=== PATIENT | male | born 1990 | race Caucasian/White ===

== ENCOUNTER 2017-02-11 18:28 | Inpatient (IN) | payer OTHER ==
[~2017-02-11] VITALS: Ht 182.9 cm; Wt 86.4 kg
[~2017-02-11 18:28] MED LIST: ABREVA2 GM TP; ANAPROX DS550 M1 PO; BENTYL10 MG PO; DEPAKOTE ER500 MG PO; DEPAKOTE500 MG PO; DIVALPROEX SOD500 MG PO; FLOMAX0.4 MG PO; HYDROCODON-ACE1 EAC7 PO; LAMICTAL; LAMICTAL100 MG PO; LAMICTAL200 MG PO; LAMOTRIGINE200 MG PO; NAPROSYN500 MG PO; NORVASC5 M1 PO; PROMETHAZINE HC25 M1 PO; ZOFRAN ODT4 MG PO
[2017-02-11 19:27] LABS: BASOPHIL COUNT 0.1 K/uL (0-0.1); EOSINOPHIL (%) 0.4 % (0-5); EOSINOPHIL COUNT 0.1 K/uL (0-0.3); HEMATOCRIT 37.1 % (38.0-50.0); IMMATURE GRANULOCYTE COUNT 0.2 K/uL; INSTRUMENT ABS NEUTROPHIL CT 11.8 K/uL; LYMPHOCYTE COUNT 4.6 K/uL (1.0-2.8); MCHC 32.9 G/DL (30.0-36.0); MCV 91.2 FL (86-99); MEAN PLAT.VOLUME 10.9 uM^3 (9.0-12.4); MONOCYTE (%) 6.4 % (3-12); MONOCYTE COUNT 1.2 K/uL (0-0.8); NEUTROPHIL (%) 66.1 % (45-76); NEUTROPHIL COUNT 11.8 K/uL (1.8-6.4); PLATELET COUNT 325 K/uL (156-360); RBC DIS.WIDTH-CV 12.8 % (11.8-14.6); RBC DIS.WIDTH-SD 42.4 % (39-53); RED BLOOD COUNT 4.07 M/uL (4.00-5.50); WHITE BLOOD COUNT 17.8 K/uL (4.1-10.2)
[2017-02-11 19:36] LABS: CHLORIDE 104 mEq/L (99-109); SODIUM 139 mEq/L (136-147)
[2017-02-11 19:38] LABS: GLUCOSE 118 mg/dL (70-99)
[2017-02-11 19:39] LABS: ANION GAP 13 MEQ/L (2-14)
[2017-02-11 19:40] LABS: TOTAL BILIRUBIN 0.3 mg/dL (0.0-1.0)
[2017-02-11 19:41] LABS: ALKALINE PHOSPHATASE 39 IU/L (3-129)
[2017-02-11 19:42] LABS: GFR ESTIMATE (CALCULATED) > 59 mL/min/
[2017-02-11 19:43] LABS: UREA NITROGEN (BUN) 44 mg/dL (9-23)
[2017-02-11 19:45] LABS: LIPASE 26 U/L (1.0-51.0)
[2017-02-11] MEDS ORDERED: ALEVE220 MG PO (20:44)
[2017-02-11 20:54] LABS: ADD MIUA? NO; BILIRUBIN NEGATIVE; BLOOD NEGATIVE; COLOR STRAW ((YELLOW)); GLUCOSE (STRIP) NEGATIVE; KETONES 5; LEUKOCYTES NEGATIVE; NITRITE NEGATIVE; PROTEIN (STRIP) NEGATIVE; SPECIFIC GRAVITY 1.045 (1.000-1.030); UROBILINOGEN 0.2 MG/DL (0.2-1.0)
[2017-02-11 21:51] LABS: HEMATOCRIT 28.7 % (38.0-50.0); MCV 91.4 FL (86-99)
[2017-02-11 22:17] LABS: HEMATOCRIT 29.1 % (38.0-50.0); MCV 91.8 FL (86-99)
[2017-02-11 22:23] LABS: SAMPLE HEMOLYSIS CHECK 0; SAMPLE ICTERIC CHECK 0; SAMPLE LIPEMIA CHECK 0
[2017-02-11 23:32] LABS: HEMATOCRIT 27.9 % (38.0-50.0); MCH 29.4 PG (29.0-34.0); MCHC 32.3 G/DL (30.0-36.0); MCV 91.2 FL (86-99); MEAN PLAT.VOLUME 10.7 uM^3 (9.0-12.4); PLATELET COUNT 226 K/uL (156-360); RBC DIS.WIDTH-CV 12.8 % (11.8-14.6); RBC DIS.WIDTH-SD 42.3 % (39-53); RED BLOOD COUNT 3.06 M/uL (4.00-5.50); WHITE BLOOD COUNT 12.3 K/uL (4.1-10.2)
[2017-02-12] VITALS (7 sets, daily range): BP systolic 103–142; BP diastolic 51–91
[2017-02-12 01:32] LABS: HEMATOCRIT 25.9 % (38.0-50.0); MCV 90.2 FL (86-99)
[2017-02-12 04:27] LABS: HEMATOCRIT 24.5 % (38.0-50.0); MCV 90.4 FL (86-99)
[2017-02-12 07:06] LABS: HEMATOCRIT 24.6 % (38.0-50.0); MCV 91.1 FL (86-99)
[2017-02-12 07:34] LABS: ANION GAP 12 MEQ/L (2-14); CHLORIDE 105 MEQ/L (99-109); GFR ESTIMATE (CALCULATED) > 59 mL/min/; SAMPLE HEMOLYSIS CHECK 0; SAMPLE ICTERIC CHECK 0; SAMPLE LIPEMIA CHECK 0; SODIUM 144 MEQ/L (136-147); UREA NITROGEN (BUN) 24 mg/dL (9-23)
[2017-02-12 07:39] LABS: GLUCOSE 79 mg/dL (70-99)
[2017-02-12 10:36] LABS: HEMATOCRIT 23.5 % (38.0-50.0); MCH 29.8 PG (29.0-34.0); MCHC 32.8 G/DL (30.0-36.0); MCV 91.1 FL (86-99); MEAN PLAT.VOLUME 10.7 uM^3 (9.0-12.4); PLATELET COUNT 206 K/uL (156-360); RBC DIS.WIDTH-CV 13.2 % (11.8-14.6); RED BLOOD COUNT 2.58 M/uL (4.00-5.50); WHITE BLOOD COUNT 11.7 K/uL (4.1-10.2)
[2017-02-12 11:02] LABS: ANION GAP 9 MEQ/L (2-14); CHLORIDE 107 MEQ/L (99-109); GFR ESTIMATE (CALCULATED) > 59 mL/min/; GLUCOSE 82 mg/dL (70-99); POTASSIUM 3.7 MEQ/L (3.7-5.4); SAMPLE HEMOLYSIS CHECK 0; SAMPLE ICTERIC CHECK 0; SAMPLE LIPEMIA CHECK 0; SODIUM 142 MEQ/L (136-147); UREA NITROGEN (BUN) 23 mg/dL (9-23)
[2017-02-12 13:48] LABS: HEMATOCRIT 22.1 % (38.0-50.0); MCV 92.1 FL (86-99)
[2017-02-13] VITALS (7 sets, daily range): BP systolic 110–143; BP diastolic 51–86
[2017-02-13 00:56] LABS: HEMATOCRIT 29.5 % (38.0-50.0); MCV 89.7 FL (86-99)
[2017-02-13 07:36] LABS: HEMATOCRIT 28.3 % (38.0-50.0); MCH 29.8 PG (29.0-34.0); MCHC 33.2 G/DL (30.0-36.0); MCV 89.8 FL (86-99); MEAN PLAT.VOLUME 10.9 uM^3 (9.0-12.4); PLATELET COUNT 183 K/uL (156-360); RBC DIS.WIDTH-CV 13.3 % (11.8-14.6); RBC DIS.WIDTH-SD 43.2 % (39-53); RED BLOOD COUNT 3.15 M/uL (4.00-5.50); WHITE BLOOD COUNT 10.1 K/uL (4.1-10.2)
[2017-02-13 07:59] LABS: ANION GAP 7 MEQ/L (2-14); CHLORIDE 104 MEQ/L (99-109); GFR ESTIMATE (CALCULATED) > 59 mL/min/; GLUCOSE 82 mg/dL (70-99); POTASSIUM 3.8 MEQ/L (3.7-5.4); SAMPLE HEMOLYSIS CHECK 0; SAMPLE ICTERIC CHECK 0; SAMPLE LIPEMIA CHECK 0; SODIUM 141 MEQ/L (136-147); UREA NITROGEN (BUN) 13 mg/dL (9-23)
[2017-02-13 13:19] LABS: HEMATOCRIT 30.2 % (38.0-50.0); MCV 89.1 FL (86-99)
[2017-02-13 19:36] LABS: HEMATOCRIT 29.5 % (38.0-50.0); MCV 88.9 FL (86-99)
[2017-02-14 01:57] LABS: HEMATOCRIT 29.8 % (38.0-50.0); MCV 88.2 FL (86-99)
[2017-02-14 05:10] VITALS: BP 117/67
[2017-02-14 07:05] LABS: HEMATOCRIT 28.2 % (38.0-50.0); MCV 88.1 FL (86-99)
[2017-02-14 07:50] LABS: ANION GAP 9 MEQ/L (2-14); CHLORIDE 103 MEQ/L (99-109); GFR ESTIMATE (CALCULATED) > 59 mL/min/; GLUCOSE 85 mg/dL (70-99); POTASSIUM 3.5 MEQ/L (3.7-5.4); SODIUM 139 MEQ/L (136-147); UREA NITROGEN (BUN) 13 mg/dL (9-23)
[2017-02-14 08:00] VITALS: BP 125/69
[2017-02-14 08:07] LABS: MCH 30.4 PG (29.0-34.0); MCHC 34.2 G/DL (30.0-36.0); PLATELET COUNT 208 K/uL (156-360); RBC DIS.WIDTH-CV 13.3 % (11.8-14.6); RBC DIS.WIDTH-SD 42.6 % (39-53); RED BLOOD COUNT 3.16 M/uL (4.00-5.50); WHITE BLOOD COUNT 11.8 K/uL (4.1-10.2)
[2017-02-14 12:00] VITALS: BP 117/68
[2017-02-14 16:00] VITALS: BP 127/69
[2017-02-14 19:05] LABS: HEMATOCRIT 29.1 % (38.0-50.0); MCV 88.7 FL (86-99)
[2017-02-14 20:00] VITALS: BP 124/76
[2017-02-14 22:54] LABS: INTERNAL CONTROL VALID? YES
[2017-02-14 23:07] VITALS: BP 138/76
[2017-02-15 04:36] VITALS: BP 106/58
[2017-02-15 07:01] LABS: HEMATOCRIT 29.3 % (38.0-50.0); MCHC 33.8 G/DL (30.0-36.0); MCV 88.8 FL (86-99); MEAN PLAT.VOLUME 10.3 uM^3 (9.0-12.4); PLATELET COUNT 229 K/uL (156-360); RBC DIS.WIDTH-SD 41.1 % (39-53); WHITE BLOOD COUNT 10.1 K/uL (4.1-10.2)
[2017-02-15 09:25] VITALS: BP 127/77
[2017-02-15 10:29] LABS: POC NON-PRINT COM 1 ND
[2017-02-15 13:41] VITALS: BP 130/72
[2017-02-15] MEDS ORDERED: LEVETIRACETAM500 MG PO (14:30)
[2017-02-15] MEDS ORDERED: PROTONIX40 MG PO (14:30)
== END 2017-02-15 16:50 | disposition home or self-care (01) | DRG 378 ==
LOC: EME 18:28 → EDOF 22:54 → 4EAST 22:54
PROVIDERS: Hospitalist; Internal Medicine; Internal Medicine Gastroenterology; Physician Assistant; Specialist
PROC: 30233N1 Transfusion of Nonautologous Red Blood Cells into Peripheral Vein, Percutaneous Approach (ICD-10-PCS; principal; 2017-02-12)
PROC: 0DB68ZX Excision of Stomach, Via Natural or Artificial Opening Endoscopic, Diagnostic (ICD-10-PCS; 2017-02-12)
DX: K92.0 Hematemesis (principal); D62 Acute posthemorrhagic anemia; K25.9 Gastric ulcer, unspecified as acute or chronic, without hemorrhage or perforation; K29.80 Duodenitis without bleeding; G40.909 Epilepsy, unspecified, not intractable, without status epilepticus; E86.0 Dehydration; E87.6 Hypokalemia; K76.0 Fatty (change of) liver, not elsewhere classified
CPT/HCPCS: 70450; 74177; 80048; 80048 91; 80053; 80069; 80164; 81003; 82272; 83690; 85014; 85018; 85025; 85027; 86850; 86900; 86901; 86920; 88305; 88342 TC; 95819; 99281; 99285; C9113; J1953; J2250; J2405; J3010; J7030; J7050; P9016

== ENCOUNTER 2017-03-25 19:10 | Emergency (ER) | payer OTHER ==
[~2017-03-25] VITALS: Ht 172.7 cm; Wt 91.0 kg
[~2017-03-25 19:10] MED LIST changes: +ALEVE220 MG PO; +LEVETIRACETAM500 MG PO; +PROTONIX40 MG PO
[2017-03-25 20:04] LABS: MCH 27.4 PG (29.0-34.0); MCHC 31.3 G/DL (30.0-36.0); MCV 87.6 FL (86-99); MEAN PLAT.VOLUME 10.1 uM^3 (9.0-12.4); PLATELET COUNT 341 K/uL (156-360); RBC DIS.WIDTH-CV 12.9 % (11.8-14.6); RBC DIS.WIDTH-SD 41.3 % (39-53); RED BLOOD COUNT 4.45 M/uL (4.00-5.50); WHITE BLOOD COUNT 8.9 K/uL (4.1-10.2)
[2017-03-25 20:13] LABS: CHLORIDE 104 mEq/L (99-109); POTASSIUM 4.4 mEq/L (3.7-5.4); SODIUM 140 mEq/L (136-147)
[2017-03-25 20:14] LABS: GLUCOSE 87 mg/dL (70-99)
[2017-03-25 20:16] LABS: ANION GAP 10 MEQ/L (2-14)
[2017-03-25 20:18] LABS: GFR ESTIMATE (CALCULATED) > 59 mL/min/
[2017-03-25 20:19] LABS: UREA NITROGEN (BUN) 10 mg/dL (9-23)
[2017-03-25 20:41] LABS: SAMPLE HEMOLYSIS CHECK 0; SAMPLE ICTERIC CHECK 0; SAMPLE LIPEMIA CHECK 1
[2017-03-25 22:47] VITALS: BP 157/79
== END 2017-03-25 23:01 | disposition home or self-care (01) ==
LOC: EME 19:10
PROVIDERS: Emergency Medicine
DX: G40.909 Epilepsy, unspecified, not intractable, without status epilepticus (principal); S09.90XA Unspecified injury of head, initial encounter; W22.8XXA Striking against or struck by other objects, initial encounter; Y92.531 Health care provider office as the place of occurrence of the external cause; Z88.8 Allergy status to other drugs, medicaments and biological substances
CPT/HCPCS: 70450; 80048; 80164; 85027; 99281; 99283

== ENCOUNTER 2017-05-04 14:26 | Emergency (ER) | payer OTHER ==
[~2017-05-04] VITALS: Ht 167.6 cm; Wt 90.0 kg
[2017-05-04] MEDS ORDERED: NORCO 5/3251 TABLET PO (17:40)
[2017-05-04 18:17] VITALS: BP 132/80
== END 2017-05-04 18:19 | disposition home or self-care (01) ==
LOC: EME 14:26
PROC: 2W3EX1Z Immobilization of Right Hand using Splint (ICD-10-PCS; principal; 2017-05-04)
DX: S62.300A Unspecified fracture of second metacarpal bone, right hand, initial encounter for closed fracture (principal); W22.8XXA Striking against or struck by other objects, initial encounter
CPT/HCPCS: 73130; 99281; 99283

== ENCOUNTER 2017-12-30 23:21 | Emergency (ER) | payer OTHER ==
[~2017-12-30] VITALS: Ht 175.3 cm; Wt 82.2 kg
[~2017-12-30 23:21] MED LIST changes: +NORCO 5/3251 TABLET PO
[2017-12-31 00:01] LABS: HEMATOCRIT 45.7 % (38.0-50.0); HEMOGLOBIN 15.2 G/DL (12.5-16.6); MCH 30.2 PG (29.0-34.0); MCHC 33.3 G/DL (30.0-36.0); MCV 90.9 FL (86-99); PLATELET COUNT 273 K/uL (156-360); RBC DIS.WIDTH-CV 13.6 % (11.8-14.6); RBC DIS.WIDTH-SD 45.6 % (39-53); RED BLOOD COUNT 5.03 M/uL (4.00-5.50); WHITE BLOOD COUNT 11.4 K/uL (4.1-10.2)
[2017-12-31 00:09] LABS: CHLORIDE 102 mEq/L (99-109); POTASSIUM 4.3 mEq/L (3.7-5.4); SODIUM 144 mEq/L (136-147)
[2017-12-31 00:11] LABS: GLUCOSE 89 mg/dL (70-99)
[2017-12-31 00:14] LABS: CREATININE 1.2 mg/dL (0.6-1.3); GFR ESTIMATE (CALCULATED) > 59 mL/min/ (58.99-99999)
[2017-12-31 00:15] LABS: UREA NITROGEN (BUN) 18 mg/dL (9-23)
[2017-12-31 01:54] LABS: VALPROIC ACID (DEPAKOTE) 71.5 MCG/ML (50-100)
[2017-12-31 05:58] VITALS: BP 158/94
== END 2017-12-31 05:58 | disposition home or self-care (01) ==
LOC: EME 23:21
DX: R55 Syncope and collapse (principal); R51 Headache; R56.9 Unspecified convulsions; Z91.81 History of falling; F32.9 Major depressive disorder, single episode, unspecified; Z88.8 Allergy status to other drugs, medicaments and biological substances
CPT/HCPCS: 70450; 80048; 80164; 81003; 85027; 99281; 99285; J1200; J2765; J7030

== ENCOUNTER 2018-02-04 03:08 | Emergency (ER) | payer OTHER ==
[~2018-02-04] VITALS: Ht 170.2 cm; Wt 80.7 kg
[2018-02-04 03:58] LABS: BASOPHIL (%) 0.5 % (0-1); BASOPHIL COUNT 0.1 K/uL (0-0.1); EOSINOPHIL (%) 0.4 % (0-5); HEMATOCRIT 41.5 % (38.0-50.0); HEMOGLOBIN 13.9 G/DL (12.5-16.6); IMMATURE GRANULOCYTE (%) 0.2 % (0.0-0.7); LYMPHOCYTE (%) 30.5 % (15-42); MCH 30.5 PG (29.0-34.0); MCHC 33.5 G/DL (30.0-36.0); MONOCYTE (%) 8.8 % (3-12); MONOCYTE COUNT 0.9 K/uL (0-0.8); NEUTROPHIL (%) 59.6 % (45-76); NEUTROPHIL COUNT 5.8 K/uL (1.8-6.4); PLATELET COUNT 253 K/uL (156-360); RBC DIS.WIDTH-CV 13.7 % (11.8-14.6); RED BLOOD COUNT 4.56 M/uL (4.00-5.50); WHITE BLOOD COUNT 9.8 K/uL (4.1-10.2)
[2018-02-04 04:08] LABS: CHLORIDE 105 mEq/L (99-109); POTASSIUM 3.9 mEq/L (3.7-5.4); SODIUM 142 mEq/L (136-147)
[2018-02-04 04:10] LABS: GLUCOSE 109 mg/dL (70-99)
[2018-02-04 04:14] LABS: GFR ESTIMATE (CALCULATED) > 59 mL/min/ (58.99-99999)
[2018-02-04 04:15] LABS: UREA NITROGEN (BUN) 21 mg/dL (9-23)
[2018-02-04 04:16] LABS: CREATINE KINASE 74 IU/L (1-294)
[2018-02-04 05:44] VITALS: BP 138/81
== END 2018-02-04 05:45 | disposition home or self-care (01) ==
LOC: EME → EDBD 03:08 → EME 05:45
PROVIDERS: Emergency Medicine
DX: G40.909 Epilepsy, unspecified, not intractable, without status epilepticus (principal); R51 Headache
CPT/HCPCS: 70450; 80048; 82550; 85025; 93005; 99281; 99284

== ENCOUNTER 2018-03-27 11:55 | Emergency (ER) | payer OTHER ==
[~2018-03-27] VITALS: Ht 180.3 cm; Wt 84.2 kg
[2018-03-27 12:32] LABS: BASOPHIL (%) 0.4 % (0-1); EOSINOPHIL (%) 1.8 % (0-5); EOSINOPHIL COUNT 0.2 K/uL (0-0.3); HEMATOCRIT 43.2 % (38.0-50.0); HEMOGLOBIN 14.1 G/DL (12.5-16.6); IMMATURE GRANULOCYTE (%) 1.1 % (0.0-0.7); LYMPHOCYTE (%) 27.5 % (15-42); LYMPHOCYTE COUNT 2.8 K/uL (1.0-2.8); MCH 30.7 PG (29.0-34.0); MCHC 32.6 G/DL (30.0-36.0); MCV 93.9 FL (86-99); MONOCYTE (%) 5.2 % (3-12); MONOCYTE COUNT 0.5 K/uL (0-0.8); NEUTROPHIL COUNT 6.4 K/uL (1.8-6.4); PLATELET COUNT 292 K/uL (156-360); RBC DIS.WIDTH-SD 44.7 % (39-53)
[2018-03-27 12:42] LABS: CHLORIDE 106 mEq/L (99-109); POTASSIUM 4.5 mEq/L (3.7-5.4); SODIUM 139 mEq/L (136-147)
[2018-03-27 12:43] LABS: GLUCOSE 130 mg/dL (70-99)
[2018-03-27 12:47] LABS: CREATININE 0.9 mg/dL (0.6-1.3); GFR ESTIMATE (CALCULATED) > 59 mL/min/ (58.99-99999)
[2018-03-27 12:48] LABS: UREA NITROGEN (BUN) 14 mg/dL (9-23)
[2018-03-27 14:45] LABS: VALPROIC ACID (DEPAKOTE) 66.8 MCG/ML (50-100)
[2018-03-27] MEDS ORDERED: LAMICTAL200 MG PO (14:59)
[2018-03-27 16:35] VITALS: BP 129/70
== END 2018-03-27 16:48 | disposition home or self-care (01) ==
LOC: EME 11:55
PROVIDERS: Emergency Medicine
DX: R56.9 Unspecified convulsions (principal); F32.9 Major depressive disorder, single episode, unspecified; Z88.8 Allergy status to other drugs, medicaments and biological substances
CPT/HCPCS: 80048; 80164; 85025; 99281; 99285; J2405

== ENCOUNTER 2018-06-26 02:40 | Emergency (ER) | payer OTHER ==
[~2018-06-26] VITALS: Ht 180.3 cm; Wt 81.9 kg
[2018-06-26 02:59] LABS: HEMATOCRIT 42.9 % (38.0-50.0); HEMOGLOBIN 14.8 G/DL (12.5-16.6); MCH 31.5 PG (29.0-34.0); MCHC 34.5 G/DL (30.0-36.0); MCV 91.3 FL (86-99); PLATELET COUNT 275 K/uL (156-360); RBC DIS.WIDTH-CV 13.2 % (11.8-14.6); RBC DIS.WIDTH-SD 44.1 % (39-53)
[2018-06-26 03:29] LABS: ALBUMIN 4.4 G/DL (3.2-4.8); ALKALINE PHOSPHATASE 36 IU/L (3-129); ALT (GPT) 14 IU/L (3-49); AST (GOT) 14 IU/L (2-34); CHLORIDE 102 MEQ/L (99-109); CREATININE 1.1 MG/DL (0.6-1.3); GFR ESTIMATE (CALCULATED) > 59 mL/min/ (58.99-99999); GLUCOSE 134 mg/dL (70-99); POTASSIUM 4.6 MEQ/L (3.7-5.4); SODIUM 139 MEQ/L (136-147); TOTAL BILIRUBIN 0.3 MG/DL (0.0-1.0); TOTAL PROTEIN 7.9 G/DL (6.4-8.3); UREA NITROGEN (BUN) 17 mg/dL (9-23)
[2018-06-26 03:50] LABS: LIPASE 26 U/L (1.0-51.0)
[2018-06-26] MEDS ORDERED: ZOFRAN ODT8 MG PO (04:39)
[2018-06-26] MEDS ORDERED: MOTRIN800 MG PO (04:39)
[2018-06-26] MEDS ORDERED: FLOMAX0.4 MG PO (04:39)
[2018-06-26] MEDS ORDERED: NORCO 7.5/321 TABLET PO (04:39)
[2018-06-26 04:53] LABS: APPEARANCE SL.HAZY ((CLEAR)); BILIRUBIN NEGATIVE; BLOOD LARGE; COLOR YELLOW ((YELLOW)); GLUCOSE (STRIP) NEGATIVE; KETONES 5; LEUKOCYTES NEGATIVE; NITRITE NEGATIVE; PROTEIN (STRIP) 100; SPECIFIC GRAVITY 1.026 (1.000-1.030)
[2018-06-26 05:01] LABS: BACTERIA NONE SEEN /HPF; EPITHELIAL CELLS NONE SEEN /HPF; MUCUS 2+ /LPF; RED BLOOD CELLS TNTC /HPF (0-5); UCUL ADDED? YES
[2018-06-26] MEDS ORDERED: KEFLEX500 MG PO (05:06)
[2018-06-26 05:39] VITALS: BP 135/72
== END 2018-06-26 05:41 | disposition home or self-care (01) ==
LOC: EME 02:40
DX: N13.2 Hydronephrosis with renal and ureteral calculous obstruction (principal); R56.9 Unspecified convulsions; F32.9 Major depressive disorder, single episode, unspecified; Z87.442 Personal history of urinary calculi; Z88.8 Allergy status to other drugs, medicaments and biological substances
CPT/HCPCS: 74176; 80053; 81003; 83690; 85027; 87086; 99281; 99284; J1885